=== PATIENT | female | born 1990 | race American Indian/Alaskan Native ===

== ENCOUNTER 2018-07-21 11:00 | Emergency (ER) | payer OTHER ==
[2018-07-21 11:27] VITALS: BP 127/77; PULSE 71; TEMP 98.5; BMI 23.9
--- NOTE | 2018-07-21 12:37 | PDOC ---
History of Present Illness - General Chief Complaint: Hematuria Stated Complaint: PCP SENT Time Seen by Provider: 07/21/18 12:11 History Source: Patient Exam Limitations: Clinical Condition - History of Present Illness Initial Comments: 07/21/18 12:32 Patient with no significant past medical history present with complaint of hematuria and missing her menstrual period last month. Patient LMP May 31. Patient reported having normal menstrual periods. Patient was seen by PCP after presenting of intermittent back pain and hematuria. Patient reported beta hCG done a PCP office was negative and patient was referred for pelvic ultrasound but couldn't have it done and came to the emergency room. Patient denies nausea , vomiting, dysuria, urinary frequency or urgency. Patient denies vaginal bleeding. Patient denies any other symptoms. Patient reported pain improved with Motrin and comes back a few hours. Timing/Duration: other (3 days) Past History - Past Medical History Home Medications: Ambulatory Orders NK [No Known Home Medication] 07/21/18 COPD: No - Immunization History Immunization Up to Date: Yes - Suicide/Smoking/Psychosocial Hx Smoking History: Never smoked Hx Alcohol Use: No Drug/Substance Use Hx: No Review of Systems - Review of Systems Able to Perform ROS?: Yes Is the patient limited Danish proficient: No Constitutional: No: Fever, Malaise, Weakness HEENTM: No: Symptoms Reported Respiratory: No: Symptoms reported ABD/GI: No: Symptoms Reported, Nausea, Vomiting : Yes: See HPI, Hematuria. No: Burning, Dysuria, Discharge, Frequency, Flank Pain, Urgency Musculoskeletal: Yes: Back Pain (intermittent mid-back). No: Muscle Weakness Neurological: No: Symptoms reported All Other Systems: Reviewed and Negative *Physical Exam - Vital Signs Last Vital Signs Temp Pulse Resp BP Pulse Ox 98.5 F 71 16 127/77 99 07/21/18 11:24 07/21/18 11:24 07/21/18 11:24 07/21/18 11:24 07/21/18 11:24 - Physical Exam Comments: 07/21/18 12:36 GENERAL: Well developed, well nourished. Awake and alert. No acute distress. Supple. Full ROM. CARDIOVASCULAR: Regular rate and rhythm. No murmurs, rubs, or gallops. Distal pulses are 2+ and symmetric. PULMONARY: No evidence of respiratory distress. Lungs clear to auscultation bilaterally. No wheezing, rales or rhonchi. ABDOMINAL: Soft. Non-tender. Non-distended. No rebound or guarding. No organomegaly. Normoactive bowel sounds. MUSCULOSKELETAL . no CVAT.Normal range of motion at all joints. NEUROLOGICAL: Alert, awake, appropriate. Gait is normal without ataxia. PSYCHIATRIC: Cooperative. Good eye contact. Appropriate mood General Appearance: Yes: Nourished, Appropriately Dressed. No: Apparent Distress Moderate Sedation - Procedure Monitoring Vital Signs: Procedure Monitoring Vital Signs Temperature 98.5 F 07/21/18 11:24 Pulse Rate 71 07/21/18 11:24 Respiratory Rate 16 07/21/18 11:24 Blood Pressure 127/77 07/21/18 11:24 O2 Sat by Pulse Oximetry (%) 99 07/21/18 11:24 Medical Decision Making - Medical Decision Making 07/21/18 12:37 Patient with no significant past medication present with complaint of three-day history of hematuria and intermittent mid back pain and mid since her menstrual period last month. Patient seen by PCP and hCG test done was negative. Patient reported doing home test twice which was negative. Patient reported history of irregular menstrual periods. Medical exam unremarkabl. Mary, urine hCG and urine culture ordered. abdominal/pelvic CT ordered. 07/21/18 14:18 urine ACG negative. Spiral CT of the abdomen shows no acute pathology or kidney stone .Patient is stable for discharge with [employer] follow-up. *DC/Admit/Observation/Transfer Diagnosis at time of Disposition: Amenorrhea Hematuria Qualifiers: Hematuria type: asymptomatic microscopic Qualified Code(s): R31.21 - Asymptomatic microscopic hematuria - Discharge Dispostion Disposition: HOME Condition at time of disposition: Stable Decision to Admit order: No - Referrals Referrals: Pietro Lipscomb MD [Primary Care Provider] - - Patient Instructions Additional Instructions: Your urine lab and CAT scan was normal. Take Motrin as needed for pain. Follow- up with primary care. - Post Discharge Activity Forms/Work/School Notes: Back to Work
[2018-07-21 12:43] LABS: URINE APPEARANCE CLEAR; URINE BILIRUBIN NEGATIVE (<2.0 mg/dL); URINE COLOR YELLOW; URINE GLUCOSE (UA) NEGATIVE (NEGATIVE); URINE KETONE NEGATIVE (NEGATIVE); URINE LEUK ESTERASE NEGATIVE (NEGATIVE); URINE NITRITE NEGATIVE (NEGATIVE); URINE PROTEIN 1+ (NEGATIVE); URINE UROBILINOGEN NEGATIVE mg/dL (0.2-1.0)
[2018-07-21 12:47] LABS: EPI CELLS RARE /HPF (FEW); URINE MUCUS MODERATE
== END 2018-07-21 14:19 | disposition home or self-care (01) ==
LOC: JERFT 11:00
DX: N91.2 Amenorrhea, unspecified (principal); R31.21 Asymptomatic microscopic hematuria
CPT/HCPCS: 74176; 81003; 81015; 84703; 87086; 99281-25